=== PATIENT | male | born 1975 | race Caucasian/White ===

== ENCOUNTER → 2016-07-26 | Outpatient (REF) | payer OTHER | LOC: M LAB REF 12:06 | PROVIDERS: ATTEND Surgery | DX: Z30.2 Encounter for sterilization (principal) ==

== ENCOUNTER → 2016-08-31 | Day surgery (SDC) | payer OTHER ==
[~2016-08-31] VITALS: Ht 182.9 cm; Wt 83.9 kg
[~2016-08-31] MED LIST: BUPIVACAINE/EPIN 0.25% 30 ML VIAL As Ordered ONE; GLYCOPYRROLATE INJ 0.2 MG/ML 2 ML VIAL As Ordered ONE; KETOROLAC 30 MG/ML VIAL (J1885) As Ordered ONE; KETOROLAC 30 MG/ML VIAL (J1885) IV PRN; KETOROLAC 60 MG/2 ML VIAL (J1885) As Ordered ONE; LIDOCAINE 2% INJ 100 MG/5 ML SDV (FOR ANES.) As Ordered ONE; LR 1,000 ML IV SCH; MIDAZOLAM INJ 2 MG/2 ML VIAL (J2250) As Ordered ONE; MORPHINE 10 MG/ML 1ML VIAL As Ordered ONE; MORPHINE 2 MG/ML 1ML SYRINGE IV PRN; MULTTAB22 PO; NEOSTIGMINE 1MG/ML 5 ML SYRINGE (J2710) As Ordered ONE; NEXI40CA PO; NORCO, ANEXSIA 5/325MG TABLET (HYDROcodone/ACETAMINOPHEN) PO PRN; ONDANSETRON 4MG/2ML VIAL (J2405) As Ordered ONE; ONDANSETRON 4MG/2ML VIAL (J2405) IV PRN; PERCOCET 5MG/325MG TAB PO PRN; PROPOFOL 200 MG/20 ML VIAL As Ordered ONE; ROCURONIUM BROMIDE 50 MG/5 ML VIAL As Ordered ONE; dexameTHASONE 4 MG/ML 1ML VIAL (J1100) As Ordered ONE; ePHEDrine SULFATE 25 MG/5 ML(5MG/ML) SYRINGE As Ordered ONE; fentaNYL 100 MCG/2 ML INJECTION (J3010) IV PRN; fentaNYL 250 MCG/5 ML INJECTION (J3010) As Ordered ONE
[2016-08-31 15:00] VITALS: BP 123/74
--- NOTE | 2016-09-10 09:15 | RO ---
DATE OF PROCEDURE: 08/31/2016 PREOPERATIVE DIAGNOSIS: Left inguinal hernia. POSTOPERATIVE DIAGNOSIS: Left inguinal hernia. PROCEDURE: Laparoscopic left inguinal hernia repair with 3D Max mesh (TEPP) SURGEON: Dr. Josafat Mcmahan. VISUAL EFFECTS EDITOR: ANESTHESIA: General endotracheal anesthesia. ESTIMATED BLOOD LOSS: Minimal. FLUIDS: Crystalloid. DESCRIPTION OF PROCEDURE: The patient was brought to the operating room and was given general anesthesia. After adequate anesthesia and preoperative antibiotics were given, the patient was prepped and draped in the usual sterile fashion. Next a periumbilical incision was made with skin knife. Electrocautery was used cut through dermis, underlying subcutaneous tissue down to the fascia. Anterior rectus muscle fascia was incised and the rectus muscle was retracted laterally and anteriorly. Finger dissection of the posterior aspect of the fascia was performed inferior to the umbilicus and then the balloon dissector was placed in the preperitoneal space and dilated under direct visualization. Two 5 mm trocars were placed along the inferior aspect of the umbilicus and then under direct visualization, the loose areolar tissue on the posterior aspect of the vas as well as Selvin's ligament was taken down with hook cautery. Eventually, this was mobilized quite nicely off this area and even off the right Selvin's ligament area. Once a good working space was obtained, dissection lateral to the internal ring was performed with a blunt dissection. The peritoneum was followed up the cord structures and was it quite adherent to the cord structures itself. A lot of blunt dissection was necessary but there was some thickening of the tissue with some chronic scarring in this area, which was taken down with hook cautery. Eventually, once the peritoneum was mobilized off the cord structures out of the internal ring, this was mobilized off the cord structures medially to where the vas dove deep into the pelvis. Then the valley between the bladder and the vessels was created using some minimal blunt dissection and once this was created the 3D Max mesh was placed in the preperitoneal space, tacked in at the lateral border of the Selvin's ligament as well as on the tail of mesh, and anteriorly along the rest rectus muscle. The preperitoneal space was desufflated under direct visualization, taking care to make sure that the peritoneum was located in the appropriate position and all trocars removed under direct visualization. 0 Vicryl was used to close the fascia at the umbilicus and all incisions were closed with #4-0 Vicryl. Steri-Strips and a dry sterile dressing was applied. The patient was awakened, extubated, brought to the recovery room awake, alert, hemodynamically stable. Sponge and needle counts correct times two.
== END | disposition home or self-care (01) ==
LOC: M SDC 09:44
PROVIDERS: ATTEND Surgery
DX: K40.31 Unilateral inguinal hernia, with obstruction, without gangrene, recurrent (principal); K21.9 Gastro-esophageal reflux disease without esophagitis; F90.9 Attention-deficit hyperactivity disorder, unspecified type; K44.9 Diaphragmatic hernia without obstruction or gangrene; Z79.899 Other long term (current) drug therapy; Z88.0 Allergy status to penicillin; Z91.010 Allergy to peanuts
CPT/HCPCS: 49650; J1100; J1885; J2250; J2405; J2710; J3010